=== PATIENT | male | born 1980 | race Two or more races ===

== ENCOUNTER 2017-04-30 22:43 | Emergency (ER) | payer MEDICAID ==
[~2017-04-30] VITALS: Ht 170.2 cm; Wt 74.8 kg
[2017-04-30 22:49] VITALS: BP 130/62
--- NOTE | 2017-04-30 22:55 | NUR ---
To bed 3 a 36 yo male bibself and reports of fever, shivering x 1 day. Upon arrival to er, patient's temp per orem is 101.4F. Per patient, he feels that his throat is sore and he had immunization shots 2 days ago. Initiated comfort and cooling measures. Gowned. Awaiting for er md rodriguez. Ongoing vs monitoring.
[2017-04-30] MEDS ORDERED: ACETAMINOPHEN ES 500 MG TABLET ONE (23:57)
[2017-04-30] MEDS ORDERED: IBUPROFEN 400 MG TABLET ONE (23:57)
[2017-05-01] MEDS ORDERED: ACETAMINOPHEN 325 MG TABLET PO ONE
[2017-05-01] MEDS ORDERED: IBUPROFEN 400 MG TABLET PO ONE
== END 2017-05-01 00:08 | disposition home or self-care (01) ==
LOC: ER 22:45
DX: J06.9 Acute upper respiratory infection, unspecified (principal)
CPT/HCPCS: A4606; Z7610

== ENCOUNTER 2017-07-08 20:40 | Emergency (ER) | payer MEDICAID ==
[~2017-07-08] VITALS: Ht 172.7 cm; Wt 72.6 kg
--- NOTE | 2017-07-08 21:00 | NUR ---
PT C/O FAST HEART RATE AND BACK PAIN X 2 HOURS, NAD NOTED, VSS, RESP EVEN AND UNLABORED, PUT ON HOSPITAL GOWN, AND MONITOR, EKG AT BEDSIDE, WAITING FOR MD BARNETT.
[2017-07-08] MEDS ORDERED: LORAZEPAM 1 MG TABLET PO ONE (21:30)
[2017-07-08] MEDS ORDERED: LORAZEPAM 1 MG TABLET ONE (21:31)
[2017-07-08 21:35] LABS: BASOPHILS # (AUTO) 0.1 /CMM (0.0-0.2); BASOPHILS % (AUTO) 0.6 % (0.0-2.0); EOSINOPHILS # (AUTO) 0.1 /CMM (0.0-0.7); EOSINOPHILS % (AUTO) 0.6 % (0.0-6.0); HEMATOCRIT 47 % (39-51); HEMOGLOBIN 15.8 g/dL (13.5-17.5); LYMPHOCYTES # (AUTO) 3.2 /CMM (0.8-4.8); LYMPHOCYTES % (AUTO) 34.9 % (20.0-44.0); MEAN CORPUSCULAR HEMOGLOBIN 29 PG (26.0-33.0); MEAN CORPUSCULAR HGB CONC 34 g/dl (31.0-36.0); MEAN CORPUSCULAR VOLUME 86 fL (80-96); MONOCYTES # (AUTO) 0.7 /CMM (0.1-1.30); MONOCYTES % (AUTO) 7.2 % (2.0-12.0); NEUTROPHILS # (AUTO) 5.2 /CMM (1.8-8.9); NEUTROPHILS % (AUTO) 56.7 % (43.0-81.0); PLATELET COUNT (AUTO) 334 /CMM (150-450); RDW COEFFICIENT OF VARIATION 11.8 (11.5-15.0); RED BLOOD CELL COUNT(AUTO) 5.45 MIL/uL (4.5-6.0); WHITE BLOOD COUNT (AUTO) 9.3 K/uL (4.3-11.0)
[2017-07-08 21:44] LABS: CALCIUM, SERUM 9.3 mg/dL (8.5-10.1); CARBON DIOXIDE 30 mmol/L (21-32); CHLORIDE 101 mmol/L (98-107); CREATININE 0.9 mg/dL (0.6-1.3); GLUCOSE 96 mg/dL (74-106); POTASSIUM 3.6 mmol/L (3.5-5.1); SODIUM SERUM 138 mmol/L (136-145); UREA NITROGEN, BLOOD 21 mg/dL (7-18)
[2017-07-08 21:49] LABS: PROTHROMBIN TIME 10.4 SECS (9.5-12.7)
[2017-07-08 21:53] LABS: TROPONIN I < 0.017 ng/mL (0.00-0.056)
[2017-07-08 22:03] VITALS: BP 146/89
== END 2017-07-08 22:40 | disposition home or self-care (01) ==
LOC: ER 20:42
DX: F41.9 Anxiety disorder, unspecified (principal)
CPT/HCPCS: 36415; 71010; 80048; 84484; 85025; 85730; 93005; 99285; A4606; Z7610

== ENCOUNTER 2018-12-27 20:10 | Emergency (ER) | payer MEDICAID ==
--- NOTE | 2018-12-27 20:18 | NUR ---
CALLED PT'S NAME THREE TIMES, NO REPONSE. WILL TRY AGAIN AT A LATER TIME
--- NOTE | 2018-12-27 20:49 | NUR ---
CALLED PT'S NAME THREE TIMES, NO REPONSE. WILL TRY AGAIN AT A LATER TIME
--- NOTE | 2018-12-27 21:03 | NUR ---
CALLED PTS NAME, NO RESPONSE. PT LEFT BEFORE TRIAGE ASSESSMENT.
== END 2018-12-27 21:04 | disposition left against medical advice (07) ==
LOC: ER 20:12
DX: Z53.21 Procedure and treatment not carried out due to patient leaving prior to being seen by health care provider (principal)

== ENCOUNTER 2022-12-05 16:39 | Emergency (ER) | payer MEDICAID ==
[~2022-12-05] VITALS: Ht 172.7 cm; Wt 82.6 kg
--- NOTE | 2022-12-05 17:11 | NUR ---
PT IN BED 4 A/O X4 COMPLAINING OF N/V SINCE 5AM THIS MOTNING 3X EMESIS EPISODES. NKA.
[2022-12-05] MEDS ORDERED: ONDANSETRON HCL/PF 4 MG/2 ML VIAL ONE (17:16)
[2022-12-05] MEDS ORDERED: ACETAMINOPHEN ES 500 MG TABLET ONE (17:17)
[2022-12-05] MEDS ORDERED: FAMOTIDINE/PF INJ 20 MG/2 ML VIAL IV ONE ×2 (17:17→17:30)
[2022-12-05 17:21] LABS: BASOPHILS # (AUTO) 0.1 K/uL (0.0-0.2); BASOPHILS % (AUTO) 0.8 % (0.0-2.0); EOSINOPHILS % (AUTO) 0.5 % (0.0-6.0); HEMATOCRIT 43 % (39-51); HEMOGLOBIN 14.8 g/dL (13.5-17.5); LYMPHOCYTES # (AUTO) 2.4 K/uL (0.8-4.8); LYMPHOCYTES % (AUTO) 27.4 % (20.0-44.0); MEAN CORPUSCULAR HGB CONC 35 g/dl (31.0-36.0); MEAN CORPUSCULAR VOLUME 82 fL (80-96); MONOCYTES # (AUTO) 0.7 K/uL (0.1-1.30); MONOCYTES % (AUTO) 8.2 % (2.0-12.0); NEUTROPHILS # (AUTO) 5.6 K/uL (1.8-8.9); NEUTROPHILS % (AUTO) 63.1 % (43.0-81.0); PLATELET COUNT (AUTO) 340 K/uL (150-450); RED BLOOD CELL COUNT(AUTO) 5.26 MIL/uL (4.5-6.0); WHITE BLOOD COUNT (AUTO) 8.9 K/uL (4.3-11.0)
[2022-12-05] MEDS ORDERED: ACETAMINOPHEN ES 500 MG TABLET PO ONE (17:30)
[2022-12-05] MEDS ORDERED: ONDANSETRON HCL/PF 4 MG/2 ML VIAL IVP ONE (17:30)
[2022-12-05] MEDS ORDERED: IV NS 0.9% 1,000 ML BAG IV ONE (17:30)
[2022-12-05 17:38] LABS: CALCIUM, SERUM 9.1 mg/dL (8.5-10.1); CREATININE 0.9 mg/dL (0.6-1.3)
[2022-12-05 17:44] LABS: ALBUMIN 4.1 g/dL (3.4-5.0); BILIRUBIN,DIRECT 0.2 mg/dL (0.0-0.2); BILIRUBIN,TOTAL 0.4 mg/dL (0.2-1.0); TOTAL PROTEIN, SERUM 7.4 g/dL (6.4-8.2)
--- NOTE | 2022-12-05 18:25 | NUR ---
IV NS 1L STARTED 1724, END TIME 1824
[2022-12-05] MEDS ORDERED: ONDA4TAB5 PO (18:34)
--- NOTE | 2022-12-05 18:44 | NUR ---
IV removed. Catheter intact and site benign. Pressure and 4x4 applied to site. No bleeding noted.Patient discharged to home in stable condition. Written and verbal after care instructions given. Patient verbalizes understanding of instruction.
[2022-12-05 18:45] VITALS: BP 119/72
== END 2022-12-05 18:45 | disposition home or self-care (01) ==
LOC: ER 16:45
DX: R11.2 Nausea with vomiting, unspecified (principal); F41.9 Anxiety disorder, unspecified; Z60.2 Problems related to living alone
CPT/HCPCS: 99284; 96374; 96361; 96375; 85025; 80048; 83690; 80076; 36415; J3490; J2405; J7030

== ENCOUNTER 2022-12-11 13:17 | Emergency (ER) | payer MEDICAID ==
[~2022-12-11] VITALS: Ht 167.6 cm; Wt 86.2 kg
[~2022-12-11 13:17] MED LIST: ONDA4TAB5 PO
--- NOTE | 2022-12-11 13:17 | NUR ---
BIBS FOR ABDOMINAL PAIN/DIARRHEA. A/O X 3, TOLERATING WELL ON ROOM AIR.
--- NOTE | 2022-12-11 13:30 | NUR ---
UA WAS SENT TO LAB
--- NOTE | 2022-12-11 13:46 | NUR ---
BLOOD SAMPLES OBTAINED
[2022-12-11] MEDS ORDERED: MORPHINE SULFATE INJ 4 MG/ML DISP.SYRIN ONE (13:52)
[2022-12-11] MEDS ORDERED: KETOROLAC TROMETHAMINE 15 MG/ML VIAL ONE (13:52)
[2022-12-11] MEDS ORDERED: ONDANSETRON HCL/PF 4 MG/2 ML VIAL ONE (13:52)
[2022-12-11] MEDS ORDERED: IV NS 0.9% 1,000 ML BAG IV ONE (14:00)
[2022-12-11] MEDS ORDERED: ONDANSETRON HCL/PF 4 MG/2 ML VIAL IVP ONE (14:00)
[2022-12-11] MEDS ORDERED: MORPHINE SULFATE INJ 2 MG/ML DISP.SYRIN IV ONE (14:00)
[2022-12-11] MEDS ORDERED: KETOROLAC TROMETHAMINE INJ 30 MG/ML VIAL IV ONE (14:00)
[2022-12-11 14:34] LABS: BASOPHILS % (AUTO) 0.4 % (0.0-2.0); EOSINOPHILS % (AUTO) 0.6 % (0.0-6.0); HEMATOCRIT 43 % (39-51); HEMOGLOBIN 14.2 g/dL (13.5-17.5); LYMPHOCYTES # (AUTO) 2.1 K/uL (0.8-4.8); LYMPHOCYTES % (AUTO) 29.3 % (20.0-44.0); MEAN CORPUSCULAR HGB CONC 33 g/dl (31.0-36.0); MEAN CORPUSCULAR VOLUME 83 fL (80-96); MONOCYTES # (AUTO) 0.5 K/uL (0.1-1.30); MONOCYTES % (AUTO) 7.4 % (2.0-12.0); NEUTROPHILS # (AUTO) 4.5 K/uL (1.8-8.9); NEUTROPHILS % (AUTO) 62.3 % (43.0-81.0); PLATELET COUNT (AUTO) 343 K/uL (150-450); RED BLOOD CELL COUNT(AUTO) 5.13 MIL/uL (4.5-6.0); WHITE BLOOD COUNT (AUTO) 7.2 K/uL (4.3-11.0)
[2022-12-11 14:52] LABS: CALCIUM, SERUM 9.1 mg/dL (8.5-10.1); CREATININE 0.8 mg/dL (0.6-1.3); POTASSIUM 3.8 mmol/L (3.5-5.1)
[2022-12-11 14:59] LABS: BILIRUBIN,DIRECT 0.2 mg/dL (0.0-0.2); BILIRUBIN,TOTAL 0.5 mg/dL (0.2-1.0); TOTAL PROTEIN, SERUM 7.3 g/dL (6.4-8.2)
[2022-12-11 15:57] LABS: BILIRUBIN,URINE NEGATIVE (NEGATIVE); COLOR,URINE YELLOW (YELLOW); LEUKOCYTE ESTERASE ,URINE NEGATIVE (NEGATIVE); NITRITE, URINE NEGATIVE (NEGATIVE); PH,URINE 5.5 (5.0-8.0); PROTEIN,URINE NEGATIVE (NEGATIVE); UGLUCOSE NEGATIVE (NEGATIVE); UROBILINOGEN,URINE 0.2 EU/dL (0.2)
[2022-12-11 16:54] LABS: BACTERIA,URINE None seen /HPF (None Seen); RBC,URINE 21-50 /HPF (0-2); SQUAMOUS EPITHELIAL CELL,UR 0-2 /HPF (None Seen); WBC,URINE 0-2 /HPF (0-3)
--- NOTE | 2022-12-11 17:15 | NUR ---
Patient discharged to home in stable condition. Written and verbal after care instructions given. Patient verbalizes understanding of instruction.IV removed. Catheter intact and site benign. Pressure and 4x4 applied to site. No bleeding noted.
[2022-12-11 17:16] VITALS: BP 137/71
== END 2022-12-11 17:16 | disposition home or self-care (01) ==
LOC: ER 13:24
DX: R19.7 Diarrhea, unspecified (principal); F41.9 Anxiety disorder, unspecified; Z60.2 Problems related to living alone; Z79.899 Other long term (current) drug therapy
CPT/HCPCS: 99285; 74176; 96374; 96361; 96375; 85025; 80048; 83690; 80076; 81001; 36415; J2270; J2405; J7030; J1885

== ENCOUNTER 2024-04-18 16:34 | Emergency (ER) | payer MEDICAID ==
[~2024-04-18] VITALS: Ht 172.7 cm; Wt 83.9 kg
[2024-04-18 16:52] VITALS: BP 126/85; TEMP 98.5
[2024-04-18] MEDS ORDERED: GELATIN SPONGE,ABSORBABLE 1 EA SPONGE TP ONE (17:01)
[2024-04-18] MEDS ORDERED: GELATIN SPONGE,ABSORBABLE 1 SPONGE SPONGE TP ONE (17:02)
[2024-04-18 17:40] VITALS: O2SAT 100
== END 2024-04-18 17:47 | disposition home or self-care (01) ==
LOC: ER 16:42
DX: S01.511A Laceration without foreign body of lip, initial encounter (principal); E78.5 Hyperlipidemia, unspecified; F41.9 Anxiety disorder, unspecified; Z60.2 Problems related to living alone; W45.8XXA Other foreign body or object entering through skin, initial encounter; Y93.89 Activity, other specified; Y92.098 Other place in other non-institutional residence as the place of occurrence of the external cause; Y99.8 Other external cause status

== ENCOUNTER 2024-06-06 12:08 | Emergency (ER) | payer MEDICAID ==
[~2024-06-06] VITALS: Ht 172.7 cm; Wt 86.2 kg
[2024-06-06 12:46] VITALS: TEMP 98.5
[2024-06-06] MEDS: IV NS 0.9% 1,000 ML BAG IV ONE (13:05)
[2024-06-06] MEDS ORDERED: KETOROLAC TROMETHAMINE 15 MG/ML VIAL ONE (13:05)
[2024-06-06] MEDS ORDERED: ACETAMINOPHEN ES 500 MG TABLET ONE (13:05)
[2024-06-06] MEDS: ACETAMINOPHEN ES 500 MG TABLET PO ONE (13:05)
[2024-06-06] MEDS: KETOROLAC TROMETHAMINE 15 MG/ML VIAL IV ONE (13:05)
[2024-06-06 13:20] LABS: APPEARANCE,URINE SLIGHTLY CLOUDY (CLEAR); BILIRUBIN,URINE NEGATIVE (NEGATIVE); BLOOD, URINE 2+ Ery/uL (NEGATIVE); COLOR,URINE DARK YELLOW (YELLOW); KETONES,URINE NEGATIVE (NEGATIVE); LEUKOCYTE ESTERASE ,URINE NEGATIVE (NEGATIVE); NITRITE, URINE POSITIVE (NEGATIVE); PH,URINE 5.5 (5.0-8.0); PROTEIN,URINE TRACE mg/dl (NEGATIVE); UGLUCOSE TRACE mg/dL (NEGATIVE)
[2024-06-06 13:21] LABS: ADD URINE CULTURE YES; BACTERIA,URINE Few /HPF (None Seen); SQUAMOUS EPITHELIAL CELL,UR Rare /HPF (None Seen)
[2024-06-06 13:33] LABS: BASOPHILS # (AUTO) 0.1 K/uL (0.0-0.2); BASOPHILS % (AUTO) 0.6 % (0.0-2.0); EOSINOPHILS # (AUTO) 0.1 K/uL (0.0-0.7); EOSINOPHILS % (AUTO) 0.8 % (0.0-6.0); HEMATOCRIT 44 % (39-51); LYMPHOCYTES # (AUTO) 2.2 K/uL (0.8-4.8); LYMPHOCYTES % (AUTO) 24.8 % (20.0-44.0); MEAN CORPUSCULAR HEMOGLOBIN 29 PG (26.0-33.0); MEAN CORPUSCULAR HGB CONC 34 g/dl (31.0-36.0); MEAN CORPUSCULAR VOLUME 85 fL (80-96); MONOCYTES # (AUTO) 0.8 K/uL (0.1-1.30); MONOCYTES % (AUTO) 9.5 % (2.0-12.0); NEUTROPHILS # (AUTO) 5.6 K/uL (1.8-8.9); NEUTROPHILS % (AUTO) 64.3 % (43.0-81.0); PLATELET COUNT (AUTO) 348 K/uL (150-450); RED BLOOD CELL COUNT(AUTO) 5.21 MIL/uL (4.5-6.0); WHITE BLOOD COUNT (AUTO) 8.7 K/uL (4.3-11.0)
[2024-06-06 13:39] LABS: CALCIUM, SERUM 8.9 mg/dL (8.5-10.1); CREATININE 0.9 mg/dL (0.6-1.3); POTASSIUM 3.8 mmol/L (3.5-5.1)
[2024-06-06] MEDS ORDERED: CEPH-570 PO (14:16)
[2024-06-06] MEDS: CEFTRIAXONE 1 G in IV D5W 50 ML IV ONE (14:30)
[2024-06-06 14:56] VITALS: BP 132/81; O2SAT 98
== END 2024-06-06 14:56 | disposition home or self-care (01) ==
LOC: ER 12:13
DX: N39.0 Urinary tract infection, site not specified (principal); R30.0 Dysuria; N50.82 Scrotal pain; R31.9 Hematuria, unspecified; F41.9 Anxiety disorder, unspecified; F32.A Depression, unspecified; Z87.448 Personal history of other diseases of urinary system; Z60.2 Problems related to living alone
CPT/HCPCS: 99285; 74176; 96365; 96361; 96375; 76870; 85025; 80048; 87086; 81001; 36415; J0696; J7060; J7030; J1885